=== PATIENT | male | born 1955 | race Caucasian/White ===

== ENCOUNTER 2019-11-06 07:03 | Observation (INO) ==
[2019-11-06] MEDS ORDERED: MIDAZOLAM HCL 5 MG/ML 1 ML VIAL ONE (07:39)
[2019-11-06] MEDS ORDERED: fentaNYL citrate 100 MCG/2 ML VIAL ONE (07:39)
[2019-11-06] MEDS ORDERED: LIDOCAINE HCL 1% 20 ML VIAL ONE (07:39)
[2019-11-06] MEDS ORDERED: CEFAZOLIN 250 MG/ML 1 GM VIAL ONE (07:39)
[2019-11-06] MEDS ORDERED: BUPIVACAINE 0.25% 30 ML VIAL ONE (07:39)
[2019-11-06] MEDS ORDERED: BACITRACIN INJ 50,000 UNIT VIAL ONE (07:39)
--- NOTE | 2019-11-06 07:45 | History & Physical Report ---
Date of Service November 06, 2019 Assessment & Plan (1) Hyperlipidemia: (2) PAF (paroxysmal atrial fibrillation): (3) Ischemic cardiomyopathy: For ICD; rediscussed the procedure and potential complications consents signed (4) CAD (coronary artery disease): (5) PAD (peripheral artery disease): (6) Diabetes: History of Present Illness Chief Complaint: SOB for ICD Primary Care Provider: Deshaun Valencia DO Pt with ICM for ICD Allergies Allergy/AdvReac Type Severity Reaction Status Date / Time No Known Allergies Allergy Unverified 11/06/19 07:25 Home Medications Home Medications Medication Instructions Recorded Confirmed Type amiodarone 200 mg PO BID 11/06/19 11/06/19 History apixaban [Eliquis] 5 mg PO BID 11/06/19 11/06/19 History aspirin [Aspir-81] 81 mg PO DAILY 11/06/19 11/06/19 History atorvastatin 80 mg PO DAILY 11/06/19 11/06/19 History duloxetine [Cymbalta] 30 mg PO DAILY 11/06/19 11/06/19 History famotidine 20 mg PO BID 11/06/19 11/06/19 History gabapentin 600 mg PO TID 11/06/19 11/06/19 History insulin aspart U-100 1 sliding scale dose SUBCUT 11/06/19 11/06/19 History USEASDIRECTD insulin glargine [Lantus U-100 35 unit SUBCUT HS 11/06/19 11/06/19 History Insulin] metformin 1,000 mg PO BID 11/06/19 11/06/19 History metoprolol succinate 25 mg PO DAILY 11/06/19 11/06/19 History nitroglycerin [Nitrostat] 0.4 mg SUBLINGUAL DIRECTED PRN 11/06/19 11/06/19 History torsemide 10 mg PO DAILY 11/06/19 11/06/19 History Past Med/Surg History Family History Mother No problems noted. Social History Current Living Situation: Spouse Feels Safe at Home: Yes Safety Concerns: Feels Safe At This Time Smoking Status: Current every day smoker Hx Alcohol Use: No Hx Substance Use: No Review of Systems All systems reviewed & are unremarkable except as noted in HPI & below Physical Exam Physical Exam: aaox3, NAD NC/AT, EOMI Supple No JVD Nrl S1/S2, No murmur CTA b/l no w/r/r soft nt/nd no LE edema b/l skin intact no focal deficits Results & Data Vital Signs (Past 12 Hours) Vital Signs Temp Pulse Resp BP Pulse Ox 11/06/19 07:13 36.7 C 82 18 125/83 96
--- NOTE | 2019-11-06 07:46 | Pre Anesthesia Assessment ---
Date of Service November 06, 2019 Pre Sedation Assessment Vital Signs Temp Pulse Resp BP Pulse Ox 11/06/19 07:13 36.7 C 82 18 125/83 96 Cardiovascular + regular rhythm Respiratory normal respiratory effort, lungs clear to auscultation Pre-Sedation Airway Assessment Smoking Status: Current every day smoker Hx Sleep Apnea: No Short, Thick Neck: No Thyromental Distance: > or= 3.5 Finger Breadths Oral Cavity: + WNL Mallampati Class: III ASA: ASA3 NPO Status Date of Last Intake of Fluids: 11/06/19 Time of Last Intake of Fluids: 06:00 Last Oral Intake of Fluids Comment: sip with meds Date of Last Intake of Solid Food: 11/05/19 Time of Last Intake of Solid Foods: 18:30 Procedure Planning Contraindications for Sedation: none Current Medications Reviewed: Yes Notes The planned sedation has been discussed with the patient. Informed Consent was obtained. I have identified the patient, determined the appropriateness of sedation and have assessed the patient immediately prior to the procedure. All medicine(s) and interventions are by my order.
[2019-11-06] MEDS ORDERED: ACETAMINOPHEN 325 MG TAB PO PRN (09:09)
--- NOTE | 2019-11-06 09:09 | Post Anesthesia Assessment ---
Date of Service November 06, 2019 Post Sedation Assessment Vital Signs Temp Pulse Resp BP Pulse Ox 11/06/19 07:13 36.7 C 82 18 125/83 96 Recovery Score Activity: Moves 4 extremities Respiration: Deep Breath/Cough Circulation: +/-20% PreAnes Value Consciousness: Fully Awake Oxygen Saturation: > 92% On Room Air Discharge Sedation Level of Care: Fast Track Phase II Post Sedation Plan On clinical assessment, the patient appears to have tolerated the sedation without complications. Patient is recovering as anticipated. Patient will continue to be monitored by nursing and may be discharged when sedation discharge criteria are met per below protocol. Upon Completions of procedure up to 15 minutes continue every 5 minute vital signs and the P.A.R. score; then discharge to a Phase I or Fast Track to Phase II per the following guidelines: * Discharge Patient to appropriate Phase II area if PAR is 8 or greater or return to pre- procedure baseline. The post - procedure orders will be as directed. * If PAR score is less than 8 or not return to pre-procedure baseline then patient will follow Phase I monitoring till PAR is reached for Phase II. The Phase I may be done in procedure room or may call to secure a Phase I area. * If naloxone or flumazenil are used for reversal, hold in Phase I for continued monitoring from when last reversal dose was given for a minimum of 60 minutes or longer pending the nurse and/or physician discretion of patient condition before discharge to Phase II. Please call the Sedation Physician to re-evaluate and complete post-note for discharge to Phase II area. Do NOT discharge from procedure sedation or Phase 1 until post- sedation evaluation note is complete by procedure /sedation MD Sedation Discharge Instructions to be given to the patient at discharge to home.
--- NOTE | 2019-11-06 09:09 | Operative Report ---
Post Operative Report Pre & Post Diagnosis ICM, SB, paf Operation Date: 11/06/19 08:00 <No data on this case meets the specified criteria> I identified the patient and participated in the time-out.: Yes Procedure Operation Date: 11/06/19 08:00 Actual Procedures p ICD Insertion Single or Dual - Mercedes Segal DO Surgeon Mercedes Segal, Older Worker Specialist none Estimated Blood Loss 25 Findings Consistent with Post-Op Diagnosis Specimens none Description of Procedure see official note I attest to the content of the Intraoperative Record and any orders documented therein. Any exceptions are noted below.
[2019-11-06] MEDS ORDERED: NITROGLYCERIN SL 0.4 MG/TAB TAB SL PRN (09:10)
[2019-11-06] MEDS ORDERED: INSULIN ASPART PER UNIT SQ SCH (09:15)
--- NOTE | 2019-11-06 09:15 | Discharge Summary ---
Date of Service November 07, 2019 Admission HPI Per Admitting Provider Pt with ICM for ICD Admission Exam Per Admitting Provider aaox3, NAD NC/AT, EOMI Supple No JVD Nrl S1/S2, No murmur CTA b/l no w/r/r soft nt/nd no LE edema b/l skin intact no focal deficits Principal Diagnosis ICM s/p ICD Discharge Exam aaox3, NAD NC/AT, EOMI Supple No JVD Nrl S1/S2, No murmur CTA b/l no w/r/r soft nt/nd no LE edema b/l skin intact no focal deficits left pectoral incision intact, no hematoma mild ecchymosis Discharge Data Allergies Allergy/AdvReac Type Severity Reaction Status Date / Time No Known Allergies Allergy Unverified 11/06/19 07:25 Procedures Performed Operation Date: 11/06/19 08:00 Actual Procedures p ICD Insertion Single or Dual - Mercedes Segal DO Ordered Studies ICD Interrogation: Normal function and stable lead testing CXR: No PTX, leads in position ECG: SR 11/06/19 06:34 CL Cath Imgs for PACS use only Routine Hospital Course (1) Ischemic cardiomyopathy: (2) PAF (paroxysmal atrial fibrillation): (3) Sinus bradycardia: Total Time Total Time Spent Total Time Spent (In Minutes): 40 Total Time Includes: Discharge Planning, Medication Reconciliation and Other Discharge Plan Discharge Items Patient Disposition: Home - Self-Care Reason For Visit: DC ICD Discharge Diagnosis: ICM s/p ICD Condition on Discharge: Good Activity: As commented below Activity Comment: do not lift the left elbow over the left shoulder for 1 month Lifting: No more than 10 pounds Lifting Comment: do not lift more than 10 pounds with the left arm for 2 weeks Bathing: Keep incision dry Bathing Comment: keep dressing on & dry until wound check next week Sexual Activity: After two weeks Non-emergency contact: Radiation Monitor Call non-emergency contact if: you have any medication questions Follow-up/Referrals: Deshaun Valencia DO [Primary Care Provider] - Diet: Heart Healthy Addtl Attending Provider Instructions: Device and wound check next week in [place] [facility] If you notice any swelling at the device area call [place] [facility] immediately Pending Studies at Discharge: No Stand-Alone Forms: My [facility] Medications and DC Order Prescriptions: Continued atorvastatin 80 mg Tablet 80 mg PO DAILY RF: 0 gabapentin 600 mg Tablet 600 mg PO TID RF: 0 Lantus U-100 Insulin 100 unit/mL Solution 35 unit SUBCUT HS RF: 0 amiodarone 200 mg Tablet 200 mg PO BID RF: 0 torsemide 10 mg Tablet 10 mg PO DAILY RF: 0 aspirin [Aspir-81] 81 mg Tablet,Delayed Release (Dr/Ec) 81 mg PO DAILY RF: 0 famotidine 20 mg Tablet 20 mg PO BID RF: 0 insulin aspart U-100 100 unit/mL Solution 1 sliding scale dose SUBCUT USEASDIRECTD RF: 0 metformin 1,000 mg Tablet 1,000 mg PO BID RF: 0 nitroglycerin [Nitrostat] 0.4 mg Tablet, Sublingual 0.4 mg sublingual DIRECTED PRN (Reason: Chest Pain) RF: 0 metoprolol succinate 25 mg Tablet Extended Release 24 Hr 25 mg PO DAILY RF: 0 duloxetine [Cymbalta] 30 mg Capsule,Delayed Release(Dr/Ec) 30 mg PO DAILY RF: 0 Eliquis 5 mg Tablet 5 mg PO BID RF: 0 Discharge Orders: Discharge Order (Routine); Ordered 11/07/19 Ordered By: Mercedes Segal Admission Data Admit Date/Time: 11/06/19 08:34 Attending Provider: Mercedes Segal Admit Provider: Mercedes Segal Primary Care Provider: Deshaun Valencia
[2019-11-06] MEDS: INSULIN ASPART 100 UNITS/ML 3 ML PEN SC SCH ×3 (11:56→20:24)
[2019-11-06] MEDS: OXYCODONE/ACETAMINOPHEN 5mg/325mg TAB PO PRN ×2 (15:25→21:39)
[2019-11-06] MEDS: GABAPENTIN 600 MG TAB PO SCH ×2 (15:26→20:17)
[2019-11-06] MEDS: AMIODARONE 200 MG TAB PO SCH (20:17)
[2019-11-06] MEDS: METFORMIN HCL 500 MG TAB PO SCH (20:19)
[2019-11-06] MEDS: FAMOTIDINE 20 MG TAB PO SCH (20:19)
[2019-11-06] MEDS ORDERED: LANTUS PER UNIT CHARGE SQ SCH (21:00)
[2019-11-07] MEDS: OXYCODONE/ACETAMINOPHEN 5mg/325mg TAB PO PRN (04:25)
--- NOTE | 2019-11-07 06:44 | Electrocardiogram Report ---
Test Reason : Blood Pressure : / mmHG Vent. Rate : 074 BPM Atrial Rate : 074 BPM P-R Int : 214 ms QRS Dur : 086 ms QT Int : 390 ms P-R-T Axes : 048 -26 099 degrees QTc Int : 432 ms Sinus rhythm with 1st degree A-V block Low voltage QRS Cannot rule out Anterior infarct , age undetermined Nonspecific T wave abnormality Abnormal ECG No previous ECGs available Confirmed by Rafa Muniz ([id number]) on 11/07/2019 6:44:24 AM Referred By: Mercedes Segal Confirmed By:Rafa Muniz
[2019-11-07] MEDS: INSULIN ASPART 100 UNITS/ML 3 ML PEN SC SCH (08:11)
[2019-11-07] MEDS: GABAPENTIN 600 MG TAB PO SCH (08:12)
[2019-11-07] MEDS: AMIODARONE 200 MG TAB PO SCH (08:12)
[2019-11-07] MEDS: METFORMIN HCL 500 MG TAB PO SCH (08:13)
[2019-11-07] MEDS: FAMOTIDINE 20 MG TAB PO SCH (08:13)
[2019-11-07] MEDS ORDERED: ASPIRIN 81 MG ECTAB PO SCH (09:00)
[2019-11-07] MEDS ORDERED: APIXABAN 5 MG TABLET PO SCH (09:00)
[2019-11-07] MEDS ORDERED: ATORVASTATIN 40 MG TAB PO SCH (09:00)
[2019-11-07] MEDS ORDERED: METOPROLOL SUCC 25MG EXT REL TAB PO SCH (09:00)
[2019-11-07] MEDS ORDERED: TORSEMIDE 10 MG TAB PO SCH (09:00)
[2019-11-07] MEDS ORDERED: DULOXETINE HCL 30 MG CAP PO SCH (09:00)
--- NOTE | 2019-11-07 12:40 | XRay Report ---
XR chest 2V PA/lateral CLINICAL HISTORY: Post pacemaker placement COMPARISON STUDY: No previous studies for comparison. FINDINGS: The heart is normal in size. There are postsurgical changes of a midline sternotomy. There is a left subclavian pacer/defibrillator. Electrode position appears unremarkable. There is no pneumo thorax. There is diffuse bilateral interstitial thickening, possibly relating underlying chronic inte rstitial lung disease. Correlation with prior radiographs could confirm this impression. There is a n onspecific 1 cm pulmonary nodule located near the level of the left cardiophrenic angle. This is rath er dense despite its small size favoring a postinflammatory density [ IMPRESSION: 1. No evidence of pneumothorax status post placement of a left subclavian pacer/defibrillator 2. Suspected underlying interstitial fibrosis 3. 1 cm left lower lung zone pulmonary nodule ACT 112: Negative or not required by law. Electronically signed by: Ayush Copeland M.D. 11/07/2019 12:39 PM
--- NOTE | 2019-11-07 18:25 | Operative Report (OR) ---
DATE OF OPERATION: 11/06/2019 PREOPERATIVE DIAGNOSES: Ischemic cardiomyopathy and sinus bradycardia. POSTOPERATIVE DIAGNOSES: Ischemic cardiomyopathy and sinus bradycardia. PROCEDURE: Dual chamber rate responsive implantable cardiac defibrillator under fluoroscopic guidance. SURGEON: Mercedes Segal DO. ASSISTANTS: None. ANESTHESIA: Monitored conscious sedation administered under my supervision by Thalia Feldman. Start time 7:59, end time 9:04. Total of 5 mg of Versed and 100 mcg of fentanyl. INTRAVENOUS FLUIDS: 35 mL. ANTIBIOTICS: Two grams of Ancef. BLOOD LOSS: 25 mL. URINE OUTPUT: Not applicable. SPECIMENS: None. FINDINGS: See below. DRAINS: None. INDICATIONS: This is a 64-year-old gentleman with past medical history for ischemic cardiomyopathy, ejection fraction 20% and sinus bradycardia, history of coronary artery disease with anterior myocardial infarction in 06/2004 with a late presentation where his cath showed 80% mid LAD. It was medically treated since the MRI showed that the myocardium was nonviable. He underwent a CABG x4 in 10/2011 due to unstable angina. He also has a diagnosis of paroxysmal atrial fibrillation diagnosed in 08/2019 where he converted during that admission, he was started on Eliquis, but then readmitted in 08/2019 due to atrial flutter and atrial fibrillation and cardiogenic shock. He was then converted and then started on amiodarone in 08/2019. His CHADS2-VASc score is 4. Chronic heart failure with reduced ejection fraction, Evans Heart Association class 3, left apical thrombus, hyperlipidemia, peripheral arterial disease, status post multiple toe amputations, diabetes and chronic tobacco abuse. Due to the ischemic cardiomyopathy and sinus bradycardia, he was recommended a dual chamber ICD. CONSENT: Consent was obtained prior to the patient going into the electrophysiology lab. The patient was informed of risks, benefits and alternative procedure. Risks include but not limited to sudden cardiac , cardiac arrhythmias, cerebrovascular accident, myocardial infarction, injury to the blood vessels, chamber of the heart, lungs, bleeding and infection. The patient understood these risks and agrees to the procedure as planned. Informed consent was obtained. DESCRIPTION OF THE PROCEDURE: The patient was brought into the electrophysiology lab in fasting state. He was connected to continuous practice office associate. Timeout was performed to ensure patient identity and procedure correctly. The patient was prepped and draped over the left infraclavicular space in normal surgical standard fashion. Monitored conscious sedation was given throughout the procedure for patient's comfort level. [place] precautions were maintained throughout the procedure. 10 mL of 1% lidocaine-bupivacaine mixture were given in the left deltopectoral groove. Incision was made in the left deltopectoral groove. Blunt dissection was performed down to identify the cephalic vein. Cephalic vein was identified and isolated using 0 silk ties. The vein was nicked with 11 blade and a guidewire was inserted without any resistance. An 8-Kyrgyz sheath was inserted over the guidewire without any resistance. Dilator was removed and a second guidewire was inserted through the 8-Kyrgyz sheath to allow for retained venous access. Sheath was removed and a 9.5-[place]yrgyz sheath was inserted over one of the guidewires without any resistance. Guidewire and dilator were removed. The right ventricular defibrillator lead was advanced into right ventricle and positioned interventricular apex under fluoroscopic guidance. There was adequate pacing and sensing thresholds and no diaphragmatic stimulation with high output pacing. The 9.5-Kyrgyz sheath was peeled away and the lead was fixated to pectoralis muscle using 0 silk suture. The right atrial lead was then advanced through the 8-[place]yr[place] sheath into the right atrium and positioned interatrial appendage initially with a blue J, but it did not hold, so I ended up using the cook J. There was adequate pacing and sensing thresholds and no diaphragmatic stimulation with high output pacing. The 8-[place]yrgy[place] sheath was peeled away and the lead was fixated to pectoralis muscle using 0 silk suture. A pursestring was placed around the venous puncture site to prevent any backbleeding. Then, an additional 10 mL of 1% lidocaine-bupivacaine mixture were given over the pectoralis muscle within the pectoralis fascia prior to then making a defibrillator pocket. The pocket was flushed with copious amounts of bacitracin saline wash and inspected for hemostasis. Pulse generator was then attached to leads making sure the pins were in appropriate position, passed set screws and set screws were all tightened. Pulse generator was then placed in the pocket, making sure that the leads were lying flat beneath the device. A TYRX pouch was also used given the patient's significant peripheral arterial disease. The incision was then closed in 3-layer fashion with 2-0 Vicryl interrupted suture followed by 3-0 Vicryl interrupted suture, followed by a 4-0 Monocryl running stitch, followed then by Oleg Brownfa and micropore dressing. EQUIPMENT: 1. Pulse generator is a Medtronic PLTecha MRI XTDR SureScan [id number], serial number [id number]. 2. The Tyrx antibiotic pouch is reference [id number], lot number [id number], expiration 09/04/2020. 3. Right atrial lead Medtronic 5076-52 cm, serial number [id number]. 4. Right ventricular lead, Medtronic 6935M-62 cm, serial number [id number]. INTRAOPERATIVE TESTIN. Right atrial lead: P waves 3.4 millivolts, impedance 657 ohms, threshold 0.8 volts at 0.4 milliseconds. 2. Right ventricular lead: R waves 10.9 millivolts, impedance 753 ohms, threshold 0.5 volts at 0.4 milliseconds. FINAL MEASUREMENTS THROUGH THE DEVICE: 1. Right atrial lead: P waves 3.1 millivolts, impedance 456 ohms, threshold 1 volt at 0.4 milliseconds. 2. Right ventricular lead: R waves 12.5 millivolts, impedance 551 ohms, threshold 0.5 volts at 0.4 milliseconds. The RV coil was 64 ohms. FINAL PARAMETERS: MVP-R 60/130, right atrial and right ventricular amplitude 3.5 volts, pulse width 0.4 milliseconds, sensitivity 0.3 millivolts, a VT monitor zone at 140 beats per minute for 32 detection intervals, VT zone 167 beats per minute for 16 detection intervals and a VF zone at 200 beats per minute for 30/40 detection intervals. IMPRESSION: Successful implantation of a dual chamber rate responsive implantable cardiac defibrillator secondary to sinus bradycardia and ischemic cardiomyopathy. PLAN: Monitor the patient overnight, 12-lead ECG, chest x-ray. He is not allowed to lift the left elbow or left shoulder for 1 month. He cannot lift more than 10 pounds with the left arm for 2 weeks. He is to keep the dressing on and dry until his wound check next week. I attest to the content of the Intraoperative Record and any orders documented therein. Any exception s are noted below.
== END 2019-11-07 11:46 | disposition home or self-care (01) ==
LOC: EP 07:03 → 2E 07:03
PROC: EPB.ICD (2019-11-06 08:00)